=== PATIENT | female | born 1985 | race Caucasian/White ===

== ENCOUNTER 2018-03-08 09:10 | Inpatient (IN) ==
[2018-03-08] MEDS ORDERED: CITRIC ACID/SODIUM CITRATE 30ml PO ONE (10:14)
[2018-03-08] MEDS ORDERED: FAMOTIDINE PB 20 MG/50 ML BAG IV ONE (10:14)
[2018-03-08] MEDS ORDERED: CEFAZOLIN PREMIX (MC ONLY) 2 GM/50 ML BAG IV ONE (10:16)
[2018-03-08] MEDS ORDERED: LR 1,000 ML IV SCH (10:30)
[2018-03-08 10:53] VITALS: BMI 32.4
[2018-03-08] MEDS ORDERED: MORPHINE SULFATE PF 5mg/10ml INJ (Duramorph) ONE (11:40)
[2018-03-08] MEDS ORDERED: FentaNYL 250 MCG/5 ML INJECTION ONE (11:41)
[2018-03-08] MEDS ORDERED: SALINE FLUSH 10ml SYRINGE ONE (11:44)
[2018-03-08] MEDS ORDERED: EPHEDRINE 50mg/ml INJECTION ONE (11:44)
[2018-03-08] MEDS ORDERED: BUPIVACAINE 0.75%/DEXTROSE 8.5% SPINAL 2 ML AMPULE IJ ONE (11:48)
[2018-03-08] MEDS ORDERED: TRANEXAMIC ACID 1,000 MG in NS 100 ML IV ONE (12:09)
[2018-03-08] MEDS ORDERED: OXYTOCIN BOLUS BAG 30 UNIT/500 ML ML IV SCH (12:15)
[2018-03-08] MEDS ORDERED: HYDROCORTISONE 2.5% CREAM 30gm RECTALLY PRN (13:04)
[2018-03-08] MEDS ORDERED: DiphenhydrAMINE 25 MG CAPSULE PO PRN (13:04)
[2018-03-08] MEDS ORDERED: CALCIUM CARBONATE Chewable 500mg TABLET PO PRN (13:04)
[2018-03-08] MEDS ORDERED: ACETAMINOPHEN 500 MG TABLET PO PRN (13:04)
[2018-03-08] MEDS ORDERED: SIMETHICONE 80 MG CHEWABLE TABLET PO PRN (13:04)
--- NOTE | 2018-03-08 13:08 | Operative Note ---
Operative Note - Date of Operation Date of Operation: 03/08/18 - Preoperative Diagnosis Previous Section Preoperative Diagnosis: Desires sterilization - Postoperative Diagnosis Postoperative Diagnosis: Same - Procedure Repeat, Low-transverse , Tubal Ligation - Surgeon Surgeon: Kole Robles DO - Product Scientist OB Product Scientist: Kamryn Bryan MD - Anesthesia Anesthesia Provider: Alfredo Kaur CRNA - Estimated Blood Loss Estimated Blood Loss:: 800 - Findings Findings: viable female - APGARS : 10 - [place] Weight Weight (grams): 3754 - Name Name: Nasim
[2018-03-08] MEDS ORDERED: D5LR 1,000 ML IV SCH (13:15)
[2018-03-08] MEDS ORDERED: OXYTOCIN DRIP 30 UNIT/500 ML ML IV SCH (13:15)
[2018-03-08] MEDS: D5LR 1,000 ML IV SCH (14:24)
[2018-03-08] MEDS: IBUPROFEN 800 MG TABLET PO PRN (14:43)
[2018-03-08] MEDS: Oxycodone/Acetaminophen 5/325 1 TAB PO PRN ×2 (14:43→19:01)
[2018-03-08] MEDS ORDERED: NALOXONE 2 MG/2 ML INJECTION PFS IVP PRN (15:54)
--- NOTE | 2018-03-08 15:54 | Anesthesia Preoperative Report ---
Anesthesia Preoperative Record - Date and Time Date: 03/08/18 Preoperative Diagnosis: Scheduled Section NPO Since Date: 03/07/18 NPO Since Time: 23:00 Allergies/Adverse Reactions: Allergies Allergy/AdvReac Type Severity Reaction Status Date / Time No Known Allergies Allergy Verified 12/30/17 10:30 - Vital Signs Vital Signs: Temperature 98.3 F 03/08/18 10:45 Pulse Rate 95 03/08/18 10:45 Respiratory Rate 14 03/08/18 10:45 Blood Pressure 132/68 03/08/18 10:45 Pulse Oximetry 99 03/08/18 10:45 Height and Weight: Height 5 ft 6 in Weight 91.172 kg Body Mass Index 32.4 - Medications Inpatient Medications: Current Medications Diphenhydramine HCl (Benadryl) 25 - 50 mg PO Q6H PRN PRN Reason: Itching Docusate Calcium (Surfak) 240 mg PO DAILY [facility] Oxytocin (Pitocin Drip) 30 unit in 500 mls @ 50 mls/hr IV .Q10H [facility] Stop: 03/08/18 23:14 Last Admin: 03/08/18 13:45 Dose: Not Given Dextrose/Lactated Ringer's (Dextrose 5%-Lactated Ringers) 1,000 mls @ 100 mls/ hr IV .Q10H [facility] Last Admin: 03/08/18 14:24 Dose: Not Given Ibuprofen (Motrin) 800 mg PO Q8H PRN PRN Reason: Pain Last Admin: 03/08/18 14:43 Dose: 800 mg Magnesium Hydroxide (Mom) 30 ml PO HS PRN PRN Reason: Constipation Oxycodone/Acetaminophen (Percocet 5/325) 1 - 2 tab PO Q4H PRN PRN Reason: Pain Last Admin: 03/08/18 14:43 Dose: 1 tab Simethicone (Mylicon) 80 mg PO [facility] PRN PRN Reason: Gas Simethicone (Mylicon) 80 mg PO [facility] Home Medications: Home Medications Medication Instructions Recorded Confirmed Type Acetaminophen [Tylenol] 1,000 mg PO Q6HR PRN tab 12/24/17 03/08/18 Rx Vitamins 1 tab ORAL INH DAILY 02/27/18 03/08/18 History - Medical History Respiratory: Reports: Upper Respiratory Infection (during 2nd trimester) DENIES: Asthma, Pneumonia Cardiovascular: DENIES: Angina, Hypertension Gastrointestional: Reports: Gastroesophageal Reflux Disease (occassionally) Other History: Reports: Now DENIES: Anesthesia Reactions - Surgical History Reproductive Surgery/Treatment: Reports: Section Anesthesia Reactions: None Hx Family Anesthesia Reaction: No History of Motion Sickness: No - Social History Smoking Status: Never smoker Hx Chewing Tobacco Use: No Second Hand Exposure: No Substance Use Type: does not use Alcohol Intake Frequency: does not drink - Pertinent Findings Laboratory: CBC and BMP 03/08/18 10:30 - Physical Exam Respiratory Exam: Present: lungs clear, bilateral breath sounds equal Cardiovascular Exam: Present: regular rate and rhythm - Airway Assessment Mallampati Score: II TMD: 3 Fingerbreadths Neck Extension: good Overall Assessment: may be difficult mask vent, may be difficult intubation - ASA ASA Score: 2 - Plan Anesthesia: Neuroaxial - Discussion Discussion: Discussed risks/options/alternatives of anesthesia and questions answered. Patient consents. Nursing pain assessment noted. Present for Discussion: spouse Attestation Statement: Prior to the delivery of any anesthetic medication, I examined the patient, developed the plan, obtained the patient's consent and discussed the risk and benefits of the procedure with the patient/guardian. - Additional Information Seen by Anesthesia: Yes
[2018-03-08] MEDS: SIMETHICONE 80 MG CHEWABLE TABLET PO SCH ×2 (20:21→22:53)
[2018-03-09] MEDS: Oxycodone/Acetaminophen 5/325 1 TAB PO PRN ×3 (00:52→16:48)
[2018-03-09] MEDS: IBUPROFEN 800 MG TABLET PO PRN ×3 (00:52→16:48)
[2018-03-09] MEDS: D5LR 1,000 ML IV SCH ×2 (02:18→15:42)
--- NOTE | 2018-03-09 07:52 | OB/GYN Progress Note ---
OB-PP Progress Note - General PPD1 POD:: POD1 Maternal Group B Strep: Negative Maternal blood type: A+ Maternal Rubella Status: Immune - Subjective Date: 03/09/18 Lochia: Minimal Pain: controlled Voiding: voiding Nausea or Vomiting Present: No - Objective Vital Signs: Last Vital Signs Temp 97.9 F 03/09/18 04:17 Pulse 86 03/09/18 04:17 Resp 16 03/09/18 04:17 BP 118/58 03/09/18 04:17 Pulse Ox 97 03/09/18 04:17 Urine Output: good General: alert and oriented Cardiovascular: regular rate,rhythm Respiratory: non-labored Abdomen: fundus firm, non-tender Incision: dressed Edema: none Laboratory: Laboratory Results - last 24 hr 03/08/18 03/08/18 03/09/18 10:30 10:30 06:19 WBC 8.6 9.6 RBC 4.15 3.51 L Hgb 11.9 L 10.1 L D Hct 36.6 31.2 L D MCV 88.2 88.9 MCH 28.7 28.8 MCHC 32.5 32.4 RDW Std Deviation 49.1 49.2 Plt Count 212 177 MPV 8.8 L 8.7 L Immature Gran % (Auto) 1.0 H Neut % (Auto) 71.2 H Lymph % (Auto) 19.7 L [place] % (Auto) 7.0 Eos % (Auto) 1.0 Baso % (Auto) 0.1 Neut # (Auto) 6.1 Lymph # (Auto) 1.7 [place] # (Auto) 0.6 Eos # (Auto) 0.1 Baso # (Auto) 0.0 Abs Immat Gran (auto) 0.09 H Blood Type A Positive Antibody Screen Negative - Assessment Assessment: SP, Repeat C/S, Tubal Ligation - Plan Plan: routine care
[2018-03-09] MEDS: SIMETHICONE 80 MG CHEWABLE TABLET PO SCH ×4 (10:31→22:07)
[2018-03-09] MEDS: DOCUSATE CALCIUM 240 MG CAPSULE PO SCH (10:31)
--- NOTE | 2018-03-09 18:44 | Operative Note ---
DATE OF SERVICE 03/08/2018 PREOPERATIVE DIAGNOSES 1. Previous section. 2. Single live intrauterine at term. 3. Desires permanent sterilization. POSTOPERATIVE DIAGNOSES 1. Previous section. 2. Single live intrauterine at term - delivered. 3. Desires permanent sterilization. PROCEDURE Repeat low transverse section with tubal ligation. SURGEON Kole Robles DO BUNDLE PERSON Kamryn Bryan MD ANESTHESIA Spinal epidural. ANESTHESIA PROVIDER Alfredo Kaur CRNA ESTIMATED BLOOD LOSS 800 mL. FINDINGS Viable female infant in cephalic presentation with Apgars of 9/9/10 and a weight of 3754 g, name Nasim. Normal uterus, tubes and ovaries. COMPLICATIONS None. INDICATIONS FOR PROCEDURE This is a 32-year-old female with prior section x 3 who is at term and presented for a scheduled repeat section with tubal ligation. Risks, benefits and alternatives to the procedure were discussed with the patient in the office and on the Maternal/Child floor prior to procedure. Questions were elicited and answered and she desired to proceed with surgery. PROCEDURE The patient was taken to the operating room where spinal epidural was obtained without difficulty. She was then prepped and draped in the normal sterile fashion. Time-out was performed. TXA was given and preoperative antibiotics. At this time a Pfannenstiel skin incision was made and carried through the underlying layers to the fascia. The fascia was then incised in the midline. The fascial incision was then extended laterally with the Hoffman scissors. The superior aspect of the fascial incision was then grasped with the Johana clamp, elevated and the rectus muscles dissected off sharply with the Hoffman scissors. Attention was then turned to the inferior aspect of the fascial incision which was grasped with Johana clamps, elevated and rectus muscles dissected off with the Hoffman scissors. At this time the rectus muscles were in the midline sharply with the knife. The peritoneum was identified, grasped with a Vanesa clamp, elevated and entered sharply with the Metzenbaum scissors. The peritoneal incision was then extended superiorly and inferiorly with good visualization of the bladder. The bladder blade was inserted and the vesicouterine peritoneum was identified, grasped with the pickups, elevated and entered sharply with the Metzenbaum scissors. This incision was then extended laterally with the Metzenbaum scissors. The bladder flap was then created digitally and the bladder blade was reinserted. The uterine incision was made in a transverse fashion. The uterine incision was then extended laterally using cephalad and caudad traction. The infant's head was then delivered atraumatically followed by the body and the nose and mouth were suctioned. Cord was clamped and cut and the was handed to the nursing staff that was waiting. The uterus was exteriorized and cleared of all clot and debris and the uterine incision was repaired with 0-Vicryl in a running locked fashion. Excellent hemostasis was noted and at this time the tubal was performed. The right round ligament was identified and followed out and the right fallopian tube was identified and followed from the cornua to the fimbriae. At this time the mesosalpinx was entered with cautery and a window was made and a 3-cm segment of the fallopian tube was ligated at each end with a free tie of 2-0 chromic. At this time the Metzenbaum scissors were used to cut the 3-cm segment free and the tube segment was handed to the large engine assembler for pathology. Excellent hemostasis at the tubal site was noted and attention was turned to the left tube which was identified in a similar fashion. The mesosalpinx was entered with the cautery and a window was made and a 3-cm segment was cauterized with a free tie respectively at each end with 2-0 chromic , and then removed with the Metzenbaum scissors. The uterine incision was inspected again and excellent hemostasis was noted. The posterior cul-de-sac was cleared of all clot and debris and the uterus was returned to the abdomen. At this time the gutters were cleared of all clot and debris. Excellent hemostasis of both tubal sites and at the uterine incision was noted and the peritoneum was reapproximated with 3-0 Monocryl in a running fashion. The fascial incision was then closed with 0-Vicryl in a running fashion. The subcutaneous layer was then closed in a running fashion with a suture of 2-0 plain gut and the skin was closed with 4-0 Monocryl. Dressing used was the Prevena wound VAC system. Sponge, lap and needle counts were correct x 2. The patient was taken to the recovery room in stable condition. SUSAN
--- NOTE | 2018-03-09 20:40 | Anesthesia Postoperative Note ---
- Date and Time Date: 03/09/18 Time: 20:39 - Status Patient Participated in Evaluation: Patient Participated in Person Vital Signs: Temperature 98.3 F 03/09/18 20:00 Pulse Rate 97 03/09/18 20:00 Respiratory Rate 20 03/09/18 20:00 Blood Pressure 122/60 03/09/18 20:00 Pulse Oximetry 97 03/09/18 16:00 Respiratory Function: Airway Patent Cardiovascular Function: Regular Pulse Mental Status: Alert and Oriented Pain Intensity: 2 Hydration: Taking PO Fluids Complications During Recover: None Apparent Post Anesthesia Care Notes: full motor and sensation has returned - Follow-Up Instructions Instructions: Per Surgeon
[2018-03-10] MEDS: IBUPROFEN 800 MG TABLET PO PRN ×2 (00:08→11:00)
[2018-03-10] MEDS: Oxycodone/Acetaminophen 5/325 1 TAB PO PRN ×4 (00:08→16:35)
[2018-03-10 06:43] VITALS: RESP 18
[2018-03-10] MEDS: SIMETHICONE 80 MG CHEWABLE TABLET PO SCH (11:00)
[2018-03-10] MEDS: DOCUSATE CALCIUM 240 MG CAPSULE PO SCH (11:00)
[2018-03-10 11:18] VITALS: O2SAT 97
--- NOTE | 2018-03-10 14:31 | OB/GYN Progress Note ---
OB-PP Progress Note - General PPD2 POD:: POD2 Maternal Group B Strep: Negative Maternal blood type: A+ Maternal Rubella Status: Immune - Subjective Date: 03/10/18 Lochia: Minimal Pain: controlled Voiding: voiding Nausea or Vomiting Present: No - Objective Vital Signs: Last Vital Signs Temp 98.4 F 03/10/18 10:54 Pulse 96 03/10/18 10:54 Resp 18 03/10/18 10:54 BP 121/59 03/10/18 10:54 Pulse Ox 97 03/10/18 10:54 Urine Output: good General: alert and oriented Cardiovascular: regular rate,rhythm Respiratory: non-labored Abdomen: fundus firm, non-tender Incision: normal, dressed Extremities: non-tender - Assessment Assessment: SP, Repeat C/S, Tubal Ligation - Plan Plan: routine care, discharge home
[2018-03-10 18:07] VITALS: BP 117/73; PULSE 87; TEMP 97.9
== END 2018-03-10 17:19 | disposition home or self-care (01) | DRG 766 ==
LOC: MC 10:00
PROVIDERS: ADMIT Obstetrics & Gynecology; ATTEND Obstetrics & Gynecology